=== PATIENT | female | born 1970 | race Hispanic/Latino ===

== ENCOUNTER → 2023-01-18 | Outpatient (REF) | payer BC | LOC: RAD 10:05 | PROVIDERS: ATTEND Family Medicine Adult Medicine | DX: N30.41 Irradiation cystitis with hematuria (principal); R94.31 Abnormal electrocardiogram [ECG] [EKG] | CPT/HCPCS: 71046; 93005; 93306 ==

== ENCOUNTER → 2023-01-23 | Outpatient (REF) | payer BC | LOC: WCC 10:37 | PROVIDERS: ATTEND Family Medicine Adult Medicine | DX: N30.41 Irradiation cystitis with hematuria (principal); C53.9 Malignant neoplasm of cervix uteri, unspecified; R31.0 Gross hematuria ==

== ENCOUNTER → 2023-02-23 | Outpatient (REF) | payer BC | LOC: WCC 11:21 | PROVIDERS: ATTEND Internal Medicine Infectious Disease | DX: N30.41 Irradiation cystitis with hematuria (principal) ==